=== PATIENT | male | born 1965 | race Caucasian/White ===

== ENCOUNTER 2017-04-26 20:08 | Emergency (ER) | payer SELFPAY ==
[2017-04-26 21:40] LABS: BASOPHILS 0.3 % (0-2); EOSINOPHILS 2.2 % (0-7); HEMATOCRIT 41.9 % (42.0-54.0); HEMOGLOBIN 14.5 g/dL (13.5-17.5); IMMATURE GRANULOCYTES 0.2 % (0-5); LYMPHOCYTES 42.5 % (15-50); MCH 33.9 pg (26.0-34.0); MCHC 34.6 g/dL (31.0-37.0); MCV 97.9 fL (80.0-100.0); MONOCYTES 5.5 % (2-11); NEUTROPHILS 49.3 % (40-80); PLATELET COUNT 176 10x3/uL (130-400); RBC 4.28 10x6/uL (4.20-6.10); RDW 13.5 % (11.5-14.5); WBC 6.4 10x3/uL (4.8-10.8)
[2017-04-26 21:55] LABS: ALBUMIN 4.1 g/dL (3.4-5.0); ALKALINE PHOSPHATASE 83 U/L (46-116); ALT (SGPT) 37 U/L (10-68); BILIRUBIN - TOTAL 0.17 mg/dL (0.2-1.3); CALC OSMOLALITY 275 mosm/kg (275-300); CALCIUM 8.8 mg/dL (8.5-10.1); CARBON DIOXIDE 23.5 mmol/L (21.0-32.0); CHLORIDE - SERUM 104 mmol/L (98-107); CREATININE - SERUM 0.9 mg/dL (0.6-1.3); GLUCOSE 86 mg/dL (74-106); SODIUM 139 mmol/L (136-145); UREA NITROGEN 11 mg/dL (7-18); eGFR NON AFRICAN AMERICAN > 90 mL/min (90-120)
[2017-04-26 22:05] LABS: TROPONIN-I < 0.017 ng/mL (0.000-0.060)
== END 2017-04-26 22:13 | disposition home or self-care (01) ==
LOC: D.ER 20:08
PROVIDERS: Physician Assistant
DX: R07.9 Chest pain, unspecified (principal); F10.129 Alcohol abuse with intoxication, unspecified; F10.10 Alcohol abuse, uncomplicated; R05 Cough; F17.200 Nicotine dependence, unspecified, uncomplicated

== ENCOUNTER 2018-01-28 18:35 | Emergency (ER) | payer MEDICAID ==
[2018-01-28 19:57] LABS: BASOPHILS 0.5 % (0-2); EOSINOPHILS 2.1 % (0-7); HEMATOCRIT 38.6 % (42.0-54.0); HEMOGLOBIN 13.3 g/dL (13.5-17.5); IMMATURE GRANULOCYTES 0.3 % (0-5); LYMPHOCYTES 41.5 % (15-50); MCH 33.5 pg (26.0-34.0); MCHC 34.5 g/dL (31.0-37.0); MCV 97.2 fL (80.0-100.0); MEAN PLATELET VOLUME 9.2 fL (7.4-10.4); MONOCYTES 7.6 % (2-11); PLATELET COUNT 195 10x3/uL (130-400); RBC 3.97 10x6/uL (4.20-6.10); RDW 13.2 % (11.5-14.5); WBC 5.8 10x3/uL (4.8-10.8)
[2018-01-28 20:11] LABS: INR 0.89 (0.85-1.17); PROTIME 11.7 SECONDS (11.6-15.0)
[2018-01-28 20:13] LABS: ALBUMIN 3.7 g/dL (3.4-5.0); ALKALINE PHOSPHATASE 74 U/L (46-116); ALT (SGPT) 25 U/L (10-68); APTT 27.2 SECONDS (22.8-39.4); BILIRUBIN - TOTAL 0.15 mg/dL (0.2-1.3); CALC OSMOLALITY 278 mosm/kg (275-300); CALCIUM 8.3 mg/dL (8.5-10.1); CARBON DIOXIDE 26.1 mmol/L (21.0-32.0); CHLORIDE - SERUM 105 mmol/L (98-107); CREATININE - SERUM 0.8 mg/dL (0.6-1.3); GLUCOSE 89 mg/dL (74-106); POTASSIUM - SERUM 4.1 mmol/L (3.5-5.1); PROTEIN - SERUM 7.7 g/dL (6.4-8.2); SODIUM 141 mmol/L (136-145); UREA NITROGEN 9 mg/dL (7-18); eGFR NON AFRICAN AMERICAN > 90 mL/min (90-120)
[2018-01-28 20:14] LABS: D-DIMER-QUANTITATIVE 0.47 ug/mLFEU (0.20-0.54)
[2018-01-28 20:28] LABS: AMYLASE - SERUM 101 U/L (25-115); CKMB 0.7 U/L (0.0-3.6); CREATINE KINASE 107 UL (21-232); LIPASE 160 U/L (73-393); PRO BNP 66 pg/mL (0-125)
[2018-01-28 20:29] LABS: TROPONIN-I < 0.017 ng/mL (0.000-0.060)
== END 2018-01-29 00:35 | disposition home or self-care (01) ==
LOC: D.ER 18:35
PROVIDERS: Family Medicine
DX: R07.9 Chest pain, unspecified (principal); F17.200 Nicotine dependence, unspecified, uncomplicated

== ENCOUNTER 2018-02-26 09:48 | Emergency (ER) | payer MEDICAID | END 2018-02-26 10:27 | disposition home or self-care (01) | LOC: D.ER 09:48 | DX: L03.114 Cellulitis of left upper limb (principal); F17.200 Nicotine dependence, unspecified, uncomplicated ==